=== PATIENT | female | born 1955 | race African-American/Black ===

== ENCOUNTER 2022-12-06 11:59 | Emergency (ER) | payer MEDICARE, MEDICAID ==
[~2022-12-06] VITALS: Ht 157.5 cm; Wt 117.0 kg
[2022-12-06 12:12] VITALS: BP 139/81
[2022-12-06] MEDS ORDERED: KETOROLAC 60MG/2ML VIAL IM ONE (13:15)
[2022-12-06] MEDS ORDERED: IBUP-2029 MT (14:13)
[2022-12-06] MEDS ORDERED: CYCL10TA21 MT (14:13)
== END 2022-12-06 14:30 | disposition home or self-care (01) ==
LOC: ER 11:59
DX: S70.02XA Contusion of left hip, initial encounter (principal); S70.01XA Contusion of right hip, initial encounter; I10 Essential (primary) hypertension; Z98.51 Tubal ligation status; V49.50XA Passenger injured in collision with unspecified motor vehicles in traffic accident, initial encounter; Y93.89 Activity, other specified; Y92.89 Other specified places as the place of occurrence of the external cause; Y99.8 Other external cause status
CPT/HCPCS: 96372; 99283; J1885